=== PATIENT | male | born 1955 | race Caucasian/White ===

== ENCOUNTER 2021-06-26 05:18 | Emergency (ER) | payer MEDICARE, OTHER ==
[~2021-06-26] VITALS: Ht 177.8 cm; Wt 81.6 kg
[2021-06-26] MEDS ORDERED: HYDROMORPHONE HCL 2 MG TABLET ONE (05:32)
--- NOTE | 2021-06-26 05:35 | NUR ---
PT SADIA [id number] FROM [facility] C/O CHRONIC BACK PAIN REQUESTING PAIN MED. PT ALERT AND ORIENTED X3. PT BROUGHT IN BY STRETCHER, WITH NON LABORED BREATHING.
[2021-06-26] MEDS: HYDROMORPHONE HCL 2 MG TABLET PO PRN ×2 (05:36→05:38)
[2021-06-26] MEDS ORDERED: MORP30TA PO (05:43)
--- NOTE | 2021-06-26 07:25 | NUR ---
CALLED [facility] FOR S TRANSPORT. [phone]
--- NOTE | 2021-06-26 07:30 | NUR ---
REPORT GIVEN TO ROSSI AT FACILITY
--- NOTE | 2021-06-26 08:37 | NUR ---
REPORT GIVEN TO AMBULANCE STAFF
--- NOTE | 2021-06-26 08:47 | NUR ---
Maegan lopez in ED - 06/26/21 at 0847 by LUKE Patient discharged to home in stable condition. Written and verbal after care instructions given. Patient verbalizes understanding of instruction.
--- NOTE | 2021-06-26 08:47 | NUR ---
Patient discharged in stable condition. Written and verbal after care instructions given. Patient verbalizes understanding of instruction.
[2021-06-26 08:48] VITALS: BP 114/56
== END 2021-06-26 08:48 ==
LOC: ER 05:24
DX: M54.50 Low back pain, unspecified (principal); G89.29 Other chronic pain; I10 Essential (primary) hypertension; J44.9 Chronic obstructive pulmonary disease, unspecified; F32.9 Major depressive disorder, single episode, unspecified; F41.9 Anxiety disorder, unspecified; Z79.899 Other long term (current) drug therapy